=== PATIENT | female | born 2000 | race Caucasian/White ===

== ENCOUNTER 2018-03-25 13:40 | Outpatient (CLI) | payer OTHER ==
[2018-03-25] MEDS: DEXTROSE 5%-LR 1,000 ML IV (14:37)
[2018-03-25 14:49] LABS: ADD MAN DIFF? NO
[2018-03-25 14:52] LABS: WHITE BLOOD COUNT 7.5 10^3/ul (4.8-10.8)
[2018-03-25 14:52] LABS: BASOPHILS % 0.3 % (0.0-2.0); EOSINOPHILS # 0.1 10^3/ul (0.0-0.5); EOSINOPHILS % 1.3 % (0.0-7.0); HEMATOCRIT 32.2 % (37.0-47.0); HEMOGLOBIN 10.6 g/dl (12.0-16.0); LYMPHOCYTES # 1.8 10^3/ul (0.8-2.9); LYMPHOCYTES % 24.4 % (18.0-55.0); MEAN CORPUSCULAR HEMOGLOBIN 28.7 pg (29.0-33.0); MEAN CORPUSCULAR HGB CONC 32.9 g/dl (32.0-37.0); MEAN CORPUSCULAR VOLUME 87.3 fl (72.0-104.0); MEAN PLATELET VOLUME 8.9 fl (7.4-10.4); MONOCYTE # 0.5 10^3/ul (0.3-0.9); MONOCYTES % 6.4 % (0.0-13.0); NEUTROPHIL # 5.1 10^3/ul (1.6-7.5); NEUTROPHILS % 67.1 % (30.0-74.0); PLATELET COUNT 310 10^3/UL (140-415); RED BLOOD COUNT 3.69 10^6/ul (4.20-5.40); RED CELL DISTRIBUTION WIDTH 13.2 % (11.5-14.5)
[2018-03-25 15:20] LABS: ALANINE AMINOTRANSFERASE 14 IU/L (13-69); ALBUMIN 3.5 g/dl (3.3-4.9); ALKALINE PHOSPHATASE 86 IU/L (42-121); ANION GAP 12 (8-16); ASPARTATE AMINO TRANSFERASE 16 IU/L (15-46); BILIRUBIN,INDIRECT 0.6 mg/dl (0-1.1); BILIRUBIN,TOTAL 0.6 mg/dl (0.2-1.3); BLOOD UREA NITROGEN 6 mg/dl (7-20); CALCIUM 8.9 mg/dl (8.4-10.2); CARBON DIOXIDE 22 mmol/L (21-31); CHLORIDE 109 mmol/L (97-110); CREATININE 0.44 mg/dl (0.44-1.00); GLUCOSE 101 mg/dl (70-220); POTASSIUM 3.6 mmol/L (3.5-5.1); SODIUM 139 mmol/L (135-144)
[2018-03-25 15:39] LABS: ADD UMIC YES; UR ASCORBIC ACID NEGATIVE (NEGATIVE); UR BACTERIA FEW /HPF (NONE SEEN); UR BILIRUBIN (Dip) NEGATIVE (NEGATIVE); UR BLOOD (Dip) NEGATIVE (NEGATIVE); UR CLARITY SLIGHTLY CLOUDY (CLEAR); UR COLOR YELLOW (YELLOW); UR GLUCOSE (Dip) 1+ mg/dL (NEGATIVE); UR KETONES (Dip) 2+ mg/dL (NEGATIVE); UR LEUKOCYTE ESTERASE (Dip) TRACE Leu/ul (NEGATIVE); UR MUCUS FEW /HPF (NONE SEEN); UR NITRITE (Dip) NEGATIVE (NEGATIVE); UR RBC 3 /HPF (0-5); UR SPECIFIC GRAVITY (Dip) 1.024 (1.003-1.030); UR SQUAMOUS EPITHELIAL CELL MODERATE /HPF (FEW); UR TOTAL PROTEIN (Dip) 1+ mg/dl (NEGATIVE); UR UROBILINOGEN (Dip) NEGATIVE (NEGATIVE); UR WBC 3 /HPF (0-5)
== END 2018-03-25 16:04 | disposition home or self-care (01) ==
LOC: OBT 13:40 → L-D 13:40 → OBT 16:04
DX: O21.0 Mild hyperemesis gravidarum (principal); Z3A.30 30 weeks gestation of pregnancy
CPT/HCPCS: 76818; 80053; 81001; 82962; 85025; 87086

== ENCOUNTER 2018-03-25 16:10 | Emergency (ER) | payer OTHER | END 2018-03-25 17:20 | disposition home or self-care (01) | LOC: FTE 16:10 | DX: O99.89 Other specified diseases and conditions complicating pregnancy, childbirth and the puerperium (principal); R05 Cough; R50.9 Fever, unspecified; O20.9 Hemorrhage in early pregnancy, unspecified; O26.893 Other specified pregnancy related conditions, third trimester; R10.9 Unspecified abdominal pain; Z3A.30 30 weeks gestation of pregnancy | CPT/HCPCS: 99282; Z7502 ==

== ENCOUNTER 2018-05-14 14:03 | Outpatient (CLI) | payer OTHER | END 2018-05-14 16:23 | disposition home or self-care (01) | LOC: OBT 14:03 → L-D 14:03 → OBT 16:23 | DX: O41.03X0 Oligohydramnios, third trimester, not applicable or unspecified (principal); O47.1 False labor at or after 37 completed weeks of gestation; Z3A.37 37 weeks gestation of pregnancy | CPT/HCPCS: 76818 ==

== ENCOUNTER 2018-05-16 11:39 | Outpatient (CLI) | payer OTHER ==
[2018-05-16 12:20] LABS: ADD UMIC YES; UR ASCORBIC ACID NEGATIVE (NEGATIVE); UR BILIRUBIN (Dip) NEGATIVE (NEGATIVE); UR BLOOD (Dip) NEGATIVE (NEGATIVE); UR CLARITY SLIGHTLY CLOUDY (CLEAR); UR COLOR YELLOW (YELLOW); UR GLUCOSE (Dip) 2+ mg/dL (NEGATIVE); UR KETONES (Dip) NEGATIVE (NEGATIVE); UR LEUKOCYTE ESTERASE (Dip) 2+ Leu/ul (NEGATIVE); UR MUCUS FEW /HPF (NONE SEEN); UR NITRITE (Dip) NEGATIVE (NEGATIVE); UR RBC 1 /HPF (0-5); UR SPECIFIC GRAVITY (Dip) 1.033 (1.003-1.030); UR SQUAMOUS EPITHELIAL CELL MODERATE /HPF (FEW); UR TOTAL PROTEIN (Dip) 1+ mg/dl (NEGATIVE); UR UROBILINOGEN (Dip) 1+ mg/dL (NEGATIVE); UR WBC 8 /HPF (0-5)
== END 2018-05-16 14:43 | disposition home or self-care (01) ==
LOC: OBT 11:39 → L-D 11:39 → OBT 14:43
DX: O41.03X0 Oligohydramnios, third trimester, not applicable or unspecified (principal); Z3A.37 37 weeks gestation of pregnancy
CPT/HCPCS: 76818; 81001

== ENCOUNTER 2018-05-27 13:01 | Outpatient (CLI) | payer OTHER | END 2018-05-27 14:29 | disposition home or self-care (01) | LOC: OBT 13:01 → L-D 13:01 → OBT 14:29 | DX: O41.93X0 Disorder of amniotic fluid and membranes, unspecified, third trimester, not applicable or unspecified (principal); Z3A.39 39 weeks gestation of pregnancy | CPT/HCPCS: 76818 ==

== ENCOUNTER 2018-05-30 05:44 | Inpatient (IN) | payer OTHER ==
[2018-05-30 07:29] LABS: RUPTURE FETAL MEMBRANES POSITIVE (NEGATIVE)
[2018-05-30] MEDS ORDERED: OXYTOCIN 30 UNITS/LR 500 ML IV ×2 (08:30)
[2018-05-30] MEDS ORDERED: CARBOPROST 250 MCG INJ IM ×2 (08:30→16:30)
[2018-05-30] MEDS ORDERED: MISOPROSTOL 200 MCG TAB PR ×2 (08:30→16:30)
[2018-05-30 08:37] LABS: ADD MAN DIFF? NO
[2018-05-30 09:12] LABS: INR 0.97
[2018-05-30 09:13] LABS: PARTIAL THROMBOPLASTIN TIME 35.9 Sec (23.0-35.0)
[2018-05-30 09:30] LABS: WHITE BLOOD COUNT 13.6 10^3/ul (4.8-10.8)
[2018-05-30 09:30] LABS: BASOPHILS % 0.2 % (0.0-2.0); EOSINOPHILS % 0.1 % (0.0-7.0); HEMATOCRIT 37.8 % (37.0-47.0); HEMOGLOBIN 12.1 g/dl (12.0-16.0); LYMPHOCYTES # 2.5 10^3/ul (0.8-2.9); LYMPHOCYTES % 18.5 % (18.0-55.0); MEAN CORPUSCULAR HEMOGLOBIN 26.5 pg (29.0-33.0); MEAN CORPUSCULAR VOLUME 82.7 fl (72.0-104.0); MEAN PLATELET VOLUME 9.7 fl (7.4-10.4); MONOCYTE # 0.9 10^3/ul (0.3-0.9); MONOCYTES % 6.5 % (0.0-13.0); NEUTROPHIL # 10.1 10^3/ul (1.6-7.5); NEUTROPHILS % 74.3 % (30.0-74.0); PLATELET COUNT 324 10^3/UL (140-415); RED BLOOD COUNT 4.57 10^6/ul (4.20-5.40); RED CELL DISTRIBUTION WIDTH 13.9 % (11.5-14.5)
[2018-05-30] MEDS: LACTATED RINGER'S 1,000 ML IV (09:41)
[2018-05-30] MEDS: BUTORPHANOL 2 MG INJ IV ×2 (10:04→13:36)
[2018-05-30] MEDS ORDERED: LIDOCAINE 1% (MPF) 30 ML INJ ×2 (12:33→13:51)
[2018-05-30] MEDS: METHYLERGONOVINE 0.2 MG INJ IM (13:35)
[2018-05-30] MEDS: OXYTOCIN 30 UNITS/LR 500 ML IV ×3 (13:38→20:19)
[2018-05-30] MEDS: DIPHENHYDRAMINE 50 MG INJ IM (13:43)
[2018-05-30] MEDS: LIDOCAINE 1% (MPF) 30 ML INJ INJ (13:56)
[2018-05-30] MEDS ORDERED: ACETAMINOPHEN 325 MG TAB PO (16:30)
[2018-05-30] MEDS ORDERED: DIBUCAINE 1% 30 GM OINT TOP (16:30)
[2018-05-30] MEDS ORDERED: ZOLPIDEM 5 MG TAB PO (16:30)
[2018-05-30] MEDS ORDERED: DIPHENHYDRAMINE 50 MG INJ IV (16:30)
[2018-05-30] MEDS ORDERED: METHYLERGONOVINE 0.2 MG INJ IM (16:30)
[2018-05-30] MEDS ORDERED: OXYCODONE/ASPIRIN (4.88/325) TAB PO (16:30)
[2018-05-30] MEDS ORDERED: ONDANSETRON 4 MG INJ IV (16:30)
[2018-05-30] MEDS ORDERED: SENNA/DOCUSATE NA (8.6MG/50MG) TAB PO (16:30)
[2018-05-30] MEDS ORDERED: MAGNESIUM HYDROXIDE 30ML CUP PO (16:30)
[2018-05-30 17:23] LABS: RAPID PLASMA REAGIN NONREACTIVE (NR)
[2018-05-30] MEDS: BENZOCAINE 20% 56 ML SPRAY TOP (17:34)
[2018-05-30] MEDS: LANOLIN 7 GM TUBE TOP (17:35)
[2018-05-30] MEDS: IBUPROFEN 600 MG TAB PO (17:35)
[2018-05-30] MEDS: WITCH HAZEL/GLYCERIN PAD PR (17:35)
[2018-05-31] MEDS: DEXTROSE 5%-LR 1,000 ML IV ×2 (00:30→08:30)
[2018-05-31] MEDS: LACTATED RINGER'S 1,000 ML IV* ×2 (00:30→08:30)
[2018-05-31] MEDS: IBUPROFEN 600 MG TAB PO ×5 (05:33→23:56)
[2018-05-31 07:28] LABS: ADD MAN DIFF? NO
[2018-05-31 07:32] LABS: BASOPHILS % 0.2 % (0.0-2.0); EOSINOPHILS % 0.1 % (0.0-7.0); HEMATOCRIT 32.1 % (37.0-47.0); HEMOGLOBIN 10.1 g/dl (12.0-16.0); LYMPHOCYTES # 3.1 10^3/ul (0.8-2.9); LYMPHOCYTES % 22.8 % (18.0-55.0); MEAN CORPUSCULAR HEMOGLOBIN 26.4 pg (29.0-33.0); MEAN CORPUSCULAR HGB CONC 31.5 g/dl (32.0-37.0); MEAN PLATELET VOLUME 9.8 fl (7.4-10.4); MONOCYTE # 1.1 10^3/ul (0.3-0.9); MONOCYTES % 8.2 % (0.0-13.0); NEUTROPHIL # 9.3 10^3/ul (1.6-7.5); NEUTROPHILS % 68.2 % (30.0-74.0); PLATELET COUNT 285 10^3/UL (140-415); RED BLOOD COUNT 3.82 10^6/ul (4.20-5.40); RED CELL DISTRIBUTION WIDTH 14.3 % (11.5-14.5)
[2018-05-31 07:32] LABS: WHITE BLOOD COUNT 13.7 10^3/ul (4.8-10.8)
[2018-06-01] MEDS: IBUPROFEN 600 MG TAB PO ×2 (05:43→12:46)
[2018-06-01] MEDS: MEASLES,MUMPS,RUBELLA VACCINE INJ SC* (09:03)
[2018-06-01] MEDS: DIPHTH/TET/ACEL PERTUSS (ADULT) 0.5 ML VIAL IM* (10:00)
== END 2018-06-01 16:00 | disposition home or self-care (01) | DRG 807 ==
LOC: OBT 05:44 → L-D 05:47 → OBT 08:29 → L-D 08:00 → PP1 16:01
PROVIDERS: Obstetrics & Gynecology
PROC: 10E0XZZ Delivery of Products of Conception, External Approach (ICD-10-PCS; principal; 2018-05-30)
PROC: 0W8NXZZ Division of Female Perineum, External Approach (ICD-10-PCS; 2018-05-30)
PROC: 0UQMXZZ Repair Vulva, External Approach (ICD-10-PCS; 2018-05-30)
DX: O70.0 First degree perineal laceration during delivery (principal); Z37.0 Single live birth; Z3A.39 39 weeks gestation of pregnancy
CPT/HCPCS: 76815; 76818; 84112; 85025; 85610; 85730; 86592; 86850; 86900; 86901; 90686; 90715